=== PATIENT | female | born 1970 ===

== ENCOUNTER 2017-11-23 21:35 | Emergency (ER) | payer OTHER ==
[~2017-11-23] VITALS: Ht 162.6 cm; Wt 78.0 kg
[2017-11-23 21:57] VITALS: BP 127/85; PULSE 73; RESP 16; TEMP 98.3; O2SAT 98
--- NOTE | 2017-11-23 22:51 | RADRPT ---
EXAM DATE/TIME: 11/23/2017 22:39 [facility] COMPARISON: No previous studies available for comparison. INDICATIONS : Left knee pain and swelling for the past fours days. [place] a popping sound today when patient straigh ten leg. MEDICAL HISTORY : None. SURGICAL HISTORY : None. ENCOUNTER: Initial ACUITY: 4 - 6 days PAIN SCORE: 10/10 LOCATION: Left knee. FINDINGS: Four view examination of the left knee demonstrates no evidence of fracture or dislocation. Bony min eralization is normal. The articular surfaces are intact. Soft tissue swelling with questionable mirian nt effusion. CONCLUSION: 1. Soft tissue swelling without fracture. 2. Questionable small joint effusion. Benton Drew MD on November 23, 2017 at 22:48 Board Certified Radiologist. This report was verified electronically.
[2017-11-24] MEDS ORDERED: IBUPROFEN 400 MG TAB PO ONE
[2017-11-24] MEDS ORDERED: IBUP1TAB5 PO (00:03)
--- NOTE | 2017-11-24 00:04 | PD ---
HPI Chief Complaint: Edema Time Seen by Provider: 23:45 Travel History International Travel<30 days: No Contact w/Intl Traveler<30days: No Traveled to known affect area: No History of Present Illness HPI The patient is a 47 year old female who presents to the [facility] emergency department with a history of left knee pain that she awoke with on Thursday. She reports that it began after she worked out in the yard on . She reports that she was bending frequently and also on her knees pulling weeds. She denies any particular injury. She reports that she has been wearing a brace for stability. She reports that there is increased pain with bending her knee. She denies having any redness. She reports that the pain is worse on the lateral aspect of the knee, posterior knee and calf. She denies any prior history of DVT or PE. She denies any family history of blood clots. She denies having any known recent fevers or chills, cough, congestion, neck pain, chest pain, shortness of breath, abdominal pain, vomiting, diarrhea, urinary symptoms, or neurologic symptoms. [facility] Past Medical History Narrative Medical The patient's past medical history is significant for B12 deficiency with anemia. Anemia: Yes High Cholesterol: Yes Hypertension: Yes ?: Not Past Surgical History Narrative Surgical The patient's past surgical history is significant for cholecystectomy, incision and drainage related to an infection in her right leg Cholecystectomy: Yes Other Surgery: Yes (RIGHT LEG) Social History Alcohol Use: No Tobacco Use: Yes (One half pack per day) Substance Use: No Allergies-Medications (Allergen,Severity, Reaction): Coded Allergies: penicillin G (Unverified Allergy, Severe, 03/31/17) Reported Meds & Prescriptions Reported Meds & Active Scripts Active Ibuprofen 400 Mg Tab 400 Mg PO Q8H PRN Review of Systems Except as stated in HPI: all other systems reviewed are Neg General / Constitutional: No: Fever Eyes: No: Visual changes HENT: No: Headaches Cardiovascular: No: Chest Pain or Discomfort Respiratory: No: Shortness of Breath Gastrointestinal: No: Nausea, Vomiting, Diarrhea, Abdominal Pain Genitourinary: No: Dysuria Musculoskeletal: Positive: Myalgias, Arthralgias, Limited ROM, Edema, No: Pain Skin: No Rash Neurologic: No: Weakness Psychiatric: No: Depression Endocrine: No: Polydipsia Hematologic/Lymphatic: No: Easy Bruising Physical Exam Narrative General: The patient is a well-developed well-nourished female in no acute distress. Head and Neck exam: Head is normocephalic atraumatic. Eyes: EOMI, pupils are equal round and reactive to light. Nose: Midline septum with pink mucous membranes Mouth: Dentition unremarkable. Moist mucus membranes. Posterior oropharynx is not erythematous. No tonsillar hypertrophy. Uvula midline. Airway patent. Neck: No palpable lymphadenopathy. No nuchal rigidity. No thyromegaly. Cardiovascular: Regular rate and rhythm without murmurs, gallops, or rubs. Lungs: Clear to auscultation bilaterally. No wheezes, rhonchi, or rales. Abdomen: Soft, without tenderness to palpation in all 4 quadrants of the abdomen. No guarding, rebound, or rigidity. Normal bowel sounds are audible. No tenderness on palpation of McBurney's point. Extremities: No clubbing, cyanosis, or edema, except in the area of interest, the left knee. The patient is noted to have swelling most prominent anteriorly. The patient reports having lateral joint line tenderness on palpation. There is no crepitus or step-off. No ligament laxity noted. The patient reports having calf tenderness on palpation of the left calf. Negative Homans sign. No palpable cords. 2+ pulses in all 4 extremities. Back: No spinous process tenderness to palpation. No costovertebral angle tenderness to palpation. Neurologic Exam: Grossly nonfocal Skin Exam: No rash noted. Intact skin that is warm and dry. Data Data Last Documented VS Vital Signs Date Time Temp Pulse Resp B/P (MAP) Pulse Ox O2 Delivery O2 Flow Rate FiO2 11/23/17 21:57 98.3 73 16 127/85 (99) 98 Room Air Orders Orders Knee, Complete (4vws) (11/23/17 ) Ibuprofen (Motrin) (11/24/17 00:00) Ice/Cold Pack (11/23/17 23:58) Us Leg Venous Doppler (11/24/17 23:57) Splint Or Brace Apply/Monitor (11/24/17 00:46) Ed Discharge Order (11/24/17 00:46) [facility] Medical Decision Making Medical Screen Exam Complete: Yes Emergency Medical Condition: Yes Medical Record Reviewed: Yes Differential Diagnosis Patellofemoral syndrome, versus osteoarthritis, versus gout, versus internal derangement of the knee, versus DVT, versus Magallanes's cyst, versus bursitis Narrative Course During the course of the patient's emergency department visit, the patient's history, examination, and differential diagnosis were reviewed with the patient. The patient was placed on a enamel burner with oximetry and frequent blood pressure monitoring. The patient had an x-ray of the left knee ordered, ultrasound of the left lower extremity ordered. The patient was initially provided Motrin 400 mg p.o. 1 for pain, and ice pack to the area, elevation of the left leg. Radiology studies were reviewed and remarkable for a left knee x-ray showed soft tissue swelling without fracture, questionable small joint effusion. Lower extremity ultrasound is negative for DVT. The patient was placed in a left knee immobilizer. The patient was instructed to follow-up with her primary care physician. She reports having an appointment already scheduled for . She was instructed to continue to ice the area of swelling, elevate frequently, and continue on anti-inflammatory pain medications. She was instructed to discuss getting into physical therapy with her primary care physician regarding the injury. She was instructed that if she continues to have pain, an MRI may be indicated at that time. The patient is resting comfortably and feels better, is alert and in no distress. The patient's results and examination findings were discussed with the patient. The repeat examination is unremarkable and benign. The history, exam, diagnostic testing, and current condition do not suggest any significant pathology to warrant further testing, continued ED treatment, admission, or surgical evaluation at this point. The vital signs have been stable. The patient does not have uncontrollable pain, intractable vomiting, or other significant symptoms. The patient's condition is stable and appropriate for discharge. The patient will pursue further outpatient evaluation with a primary care physician or other designated or consulting physician as indicated in the discharge instructions. The patient expressed understanding and was agreeable with this plan. Diagnosis Primary Impression: Knee pain, acute Qualified Codes: M25.562 - Pain in left knee Referrals: Primary Care Physician 1 week Patient Instructions: General Instructions, Knee Pain (ED) Med/Other Pt SpecificInfo: Prescription(s) given Scripts Ibuprofen (Ibuprofen) 400 Mg Tab 400 MG PO Q8H Y for PAIN GREATER THAN 5, #12 TAB 0 Refills Prov: Ernestina Purcell MD 11/24/17 Disposition: 01 DISCHARGE HOME Condition: Stable Ernestina Purcell MD Nov 24, 2017 00:04
--- NOTE | 2017-11-24 00:39 | RADRPT ---
EXAM DATE/TIME: 11/24/2017 00:20 [facility] COMPARISON: No previous studies available for comparison. INDICATIONS : Left leg swelling. MEDICAL HISTORY : Hypercholesterolemia. Hypertension. Tobacco use. Anemia. SURGICAL HISTORY : Cholecystectomy. Right leg surgery. ENCOUNTER: Initial ACUITY: 3 days PAIN SCORE: 4/10 LOCATION: Left leg. TECHNIQUE: Venous ultrasound of the leg was performed from the inguinal ligament to the proximal calf. Real-shazia e, color Doppler and spectral tracing, compression and augmentation techniques were used. FINDINGS: There is normal compressibility of the deep venous system from the inguinal region to the proximal ca lf. No echogenic clot is seen in the lumen of the common femoral, femoral, popliteal, and posterior tibial veins. There is a normal response of the venous system to proximal and distal augmentation an d respiration. CONCLUSION: No evidence of DVT. Benton Drew MD on November 24, 2017 at 0:37 Board Certified Radiologist. This report was verified electronically.
== END 2017-11-24 01:24 | disposition home or self-care (01) ==
LOC: NEPC 21:35
DX: M25.562 Pain in left knee (principal); M79.89 Other specified soft tissue disorders; F17.200 Nicotine dependence, unspecified, uncomplicated
CPT/HCPCS: 73564; 93971; 99284; L1830